=== PATIENT | male | born 1950 | race Caucasian/White ===

== ENCOUNTER 2017-10-29 08:55 | Outpatient (CLI) | payer MEDICARE, MEDICAID ==
[2017-10-29 09:31] LABS: BASOPHILS 0.2 % (0-2); EOSINOPHILS 9.4 % (0-7); HEMATOCRIT 39.5 % (42.0-54.0); HEMOGLOBIN 12.8 g/dL (13.5-17.5); IMMATURE GRANULOCYTES 0.2 % (0-5); LYMPHOCYTES 23.2 % (15-50); MCHC 32.4 g/dL (31.0-37.0); MCV 92.5 fL (80.0-100.0); MEAN PLATELET VOLUME 9.4 fL (7.4-10.4); MONOCYTES 8.6 % (2-11); NEUTROPHILS 58.4 % (40-80); PLATELET COUNT 209 10x3/uL (130-400); RBC 4.27 10x6/uL (4.20-6.10); RDW 12.7 % (11.5-14.5); WBC 6.2 10x3/uL (4.8-10.8)
[2017-10-29] MEDS ORDERED: LISINOPRIL5 MG PO (09:40)
[2017-10-29] MEDS ORDERED: OMEPRAZOLE40 MG PO (09:41)
[2017-10-29] MEDS ORDERED: NEXIUM20 MG PO (09:42)
[2017-10-29 09:49] LABS: ANION GAP 12.9 mmol/L (8-16); CALCIUM 8.8 mg/dL (8.5-10.1); CREATININE - SERUM 1.5 mg/dL (0.6-1.3); INR 1.06 (0.85-1.17); POTASSIUM - SERUM 3.9 mmol/L (3.5-5.1); PROTIME 13.4 SECONDS (11.6-15.0)
[2017-10-29 09:54] VITALS: BP 128/75; BMI 26.1
== END 2017-10-29 15:30 | disposition home or self-care (01) ==
LOC: D.OPS 08:55 → D.SP 11:00 → D.OPS 11:00
PROVIDERS: General Practice
DX: C19 Malignant neoplasm of rectosigmoid junction (principal); Z01.812 Encounter for preprocedural laboratory examination